=== PATIENT | female | born 1990 | race Caucasian/White ===

== ENCOUNTER 2016-08-17 09:16 | Inpatient (IN) | payer SELFPAY ==
[~2016-08-17] VITALS: Ht 160 cm; Wt 101.6 kg
[2016-08-17] VITALS (11 sets, daily range): BP systolic 115–142; BP diastolic 60–96
[2016-08-17 10:40] LABS: EOSINOPHIL (%) 0.1 % (0-5); HEMATOCRIT 35.2 % (36.0-46.0); IMMATURE GRANULOCYTE (%) 0.7 % (0.0-0.7); IMMATURE GRANULOCYTE COUNT 0.1 K/uL; INSTRUMENT ABS NEUTROPHIL CT 15.3 K/uL; LYMPHOCYTE COUNT 1.5 K/uL (1.0-2.8); MCH 32.5 PG (29.0-34.0); MCHC 35.2 G/DL (30.0-36.0); MCV 92.4 FL (83-99); MEAN PLAT.VOLUME 10.6 uM^3 (9.5-12.4); MONOCYTE (%) 6.4 % (3-12); MONOCYTE COUNT 1.2 K/uL (0-0.8); NEUTROPHIL (%) 84.1 % (45-76); NEUTROPHIL COUNT 15.3 K/uL (1.8-6.4); PLATELET COUNT 249 K/uL (156-360); RBC DIS.WIDTH-CV 12.4 % (11.8-14.6); RBC DIS.WIDTH-SD 41.6 % (39-53); RED BLOOD COUNT 3.81 M/uL (3.80-5.20); WHITE BLOOD COUNT 18.2 K/uL (4.1-10.2)
[2016-08-17 10:50] LABS: ANTI-HIV (AIDS STAT TEST) NONREACTIVE; INTERNAL CONTROL VALID? YES
[2016-08-17 11:05] LABS: ALKALINE PHOSPHATASE 115 IU/L (3-129); ANION GAP 12 MEQ/L (2-14); CHLORIDE 103 MEQ/L (99-109); GFR ESTIMATE (CALCULATED) > 59 mL/min/; GLUCOSE 99 mg/dL (70-99); POTASSIUM 3.4 MEQ/L (3.7-5.4); SAMPLE HEMOLYSIS CHECK 0; SAMPLE ICTERIC CHECK 0; SAMPLE LIPEMIA CHECK 0; SODIUM 137 MEQ/L (136-147); TOTAL BILIRUBIN 0.4 MG/DL (0.0-1.0); UREA NITROGEN (BUN) 6 mg/dL (9-23)
[2016-08-17 11:09] LABS: HBSG INDEX 0.16; HIV INDEX 0.21; HIV-1/2 AB/AG COMBO Nonreactive
[2016-08-17 11:58] LABS: TREPONEMA ANTIBODY NEGATIVE (NEGATIVE)
[2016-08-17 12:04] LABS: AMPHETAMINES QUANT VALUE 0 NG/ML; BARBITUATES QUANT VALUE 0 NG/ML; BENZODIAZEPINES QUANT VALUE 0 NG/ML; BENZODIAZEPINES, URINE SCREEN Negative (200 ng/mL); MARIJUANA QUANT VALUE 0 NG/ML; OPIATES QUANTITATIVE VALUE 0 NG/ML; PHENCYCLIDINE QUANT VALUE 0 NG/ML
[2016-08-18 07:22] VITALS: BP 105/59
[2016-08-18 08:03] LABS: EOSINOPHIL (%) 0.2 % (0-5); HEMATOCRIT 31.1 % (36.0-46.0); IMMATURE GRANULOCYTE (%) 0.9 % (0.0-0.7); IMMATURE GRANULOCYTE COUNT 0.2 K/uL; INSTRUMENT ABS NEUTROPHIL CT 12.5 K/uL; LYMPHOCYTE COUNT 2.1 K/uL (1.0-2.8); MCH 31.5 PG (29.0-34.0); MCHC 33.4 G/DL (30.0-36.0); MCV 94.2 FL (83-99); MEAN PLAT.VOLUME 10.8 uM^3 (9.5-12.4); MONOCYTE (%) 7.5 % (3-12); MONOCYTE COUNT 1.2 K/uL (0-0.8); NEUTROPHIL (%) 78.1 % (45-76); NEUTROPHIL COUNT 12.5 K/uL (1.8-6.4); PLATELET COUNT 232 K/uL (156-360); RBC DIS.WIDTH-CV 12.7 % (11.8-14.6); RBC DIS.WIDTH-SD 43.8 % (39-53)
[2016-08-18 15:14] VITALS: BP 123/70
[2016-08-18 23:00] VITALS: BP 130/59
[2016-08-19 07:06] VITALS: BP 129/69
[2016-08-19] MEDS ORDERED: IBUPROFEN800 MG PO (12:23)
[2016-08-19] MEDS ORDERED: CAMILA0.35 MG PO (13:28)
[2016-08-19 14:18] LABS: CHLAMYDIA TRACHOMATIS NEGATIVE; NEISSERIA GONORRHOEAE NEGATIVE
== END 2016-08-19 14:20 | disposition home or self-care (01) | DRG 775 ==
LOC: LDRP-OP 09:16 → 2WEST 09:17
PROVIDERS: Advanced Practice Midwife
DX: O99.334 Smoking (tobacco) complicating childbirth (principal); Z37.0 Single live birth; O41.03X0 Oligohydramnios, third trimester, not applicable or unspecified; F17.210 Nicotine dependence, cigarettes, uncomplicated; O77.0 Labor and delivery complicated by meconium in amniotic fluid; O70.0 First degree perineal laceration during delivery; O99.214 Obesity complicating childbirth; E66.9 Obesity, unspecified; Z68.39 Body mass index [BMI] 39.0-39.9, adult; Z3A.38 38 weeks gestation of pregnancy
CPT/HCPCS: 76815; 80053; 80306 90; 85025; 86703; 86762; 86780; 86900; 86901; 87340; 87491; 87591; C1755; J2540; J7120